=== PATIENT | female | born 1930 | race Caucasian/White ===

== ENCOUNTER 2018-02-28 07:31 | Day surgery (SDC) | payer OTHER ==
[~2018-02-28] VITALS: Ht 170.2 cm; Wt 60.8 kg
[~2018-02-28 07:31] MED LIST: ASPI325; ASPI81CH PO; ATEN50; ATEN50 PO; ATOR40TA PO; Antivert25 MG PO; CYCL10 PO; DOXA2 PO; DOXA4; ENABLEX PO; ESTMEDA; ESTMEDA PO; HYDACE5 PO; LEVSOD100 PO; LEVSOD75; LEVSOD75 PO; LIPITOR; MECL12.5 PO; METO25 PO; ONDA4ODT MM; POTA10T PO; POTCHL20ER; POTCHL20ER PO; TRIHYD5075; TRIHYD5075 PO; Triamterene W/1 EACH PO
== END 2018-02-28 17:40 | disposition home or self-care (01) ==
LOC: ORSCMMR 07:31 → MOI US 08:00 → ORSCMMR 08:00
PROVIDERS: Surgery
PROC: 07B50ZX Excision of Right Axillary Lymphatic, Open Approach, Diagnostic (ICD-10-PCS; principal; 2018-02-28 11:30)
PROC: 0HBT0ZZ Excision of Right Breast, Open Approach (ICD-10-PCS; principal; 2018-02-28 11:30)
DX: C50.911 Malignant neoplasm of unspecified site of right female breast (principal); I10 Essential (primary) hypertension; E03.9 Hypothyroidism, unspecified; Z79.899 Other long term (current) drug therapy; Z79.82 Long term (current) use of aspirin
CPT/HCPCS: 19285; 38792; 76098; 77065; 88307; 88342; A9520; J0690; J2250; J3010; J7120; Q9968

== ENCOUNTER → 2019-02-18 | Outpatient (CLI) | payer OTHER, SELFPAY | END | disposition home or self-care (01) | LOC: LAB 16:39 → LAB SHORT 16:39 | DX: B37.2 Candidiasis of skin and nail (principal) | CPT/HCPCS: 87070; 87077; 87147; 87186; 87205 ==

== ENCOUNTER → 2020-04-16 | Outpatient (CLI) | payer OTHER | LOC: LAB 18:13 → LAB SHORT 18:13 | DX: N39.0 Urinary tract infection, site not specified (principal) | CPT/HCPCS: 87077; 87086; 87186 ==

== ENCOUNTER 2020-07-02 18:41 | Emergency (ER) | payer OTHER ==
[~2020-07-02] VITALS: Ht 170.2 cm; Wt 68.0 kg
[~2020-07-02 18:41] MED LIST changes: -LEVSOD100 PO; -METO25 PO
[2020-07-02] MEDS ORDERED: FLUC200 PO (23:20)
[2020-07-27] MEDS ORDERED: METO25 PO (14:03)
[2020-07-27] MEDS ORDERED: LEVSOD75 PO (14:04)
[2020-07-27] MEDS ORDERED: DOXA1 PO (14:04)
[2020-07-27] MEDS ORDERED: ATOR40TA PO (14:05)
[2020-07-27] MEDS ORDERED: ALPR.25 PO (14:05)
[2020-07-27] MEDS ORDERED: BUME2 PO (18:07)
[2020-07-27] MEDS ORDERED: POTA10T PO (18:07)
[2020-07-27] MEDS ORDERED: LETR2.5 PO (18:07)
[2020-08-04] MEDS ORDERED: TRIA50 PO (03:42)
[2020-08-04] MEDS ORDERED: HYDCHL50 PO (03:43)
[2020-08-04] MEDS ORDERED: ASPI81CH PO (03:43)
[2020-08-04] MEDS ORDERED: MECL12.5 PO (03:44)
== END 2020-07-03 00:36 | disposition home or self-care (01) ==
LOC: ER 18:41
DX: S00.83XA Contusion of other part of head, initial encounter (principal); S80.01XA Contusion of right knee, initial encounter; F17.200 Nicotine dependence, unspecified, uncomplicated; Z88.6 Allergy status to analgesic agent; Z79.899 Other long term (current) drug therapy; Z79.82 Long term (current) use of aspirin; W01.10XA Fall on same level from slipping, tripping and stumbling with subsequent striking against unspecified object, initial encounter
CPT/HCPCS: 70450; 73562-RT; 99284-25